=== PATIENT | female | born 1995 | race Caucasian/White ===

== ENCOUNTER 2019-04-20 17:18 | Emergency (ER) | payer SELFPAY ==
[~2019-04-20] VITALS: Ht 152.4 cm; Wt 64.9 kg
[2019-04-20 21:17] VITALS: BP 136/82
== END 2019-04-20 21:50 | disposition home or self-care (01) ==
LOC: ER 17:25
DX: B35.4 Tinea corporis (principal); B35.9 Dermatophytosis, unspecified

== ENCOUNTER 2023-03-18 06:28 | Emergency (ER) | payer MEDICAID ==
[~2023-03-18] VITALS: Ht 152.4 cm; Wt 55.6 kg
[2023-03-18 07:12] LABS: Basophils # (auto) 0 10 ^3/uL (0-0.2); Basophils % (auto) 0.5 % (0.0-2.0); Eosinophils # (auto) 0 10 ^3/uL (0-0.8); Eosinophils % (auto) 0.3 % (0.0-7.0); Hematocrit 44.9 % (36.0-46.0); Hemoglobin 15.8 g/dL (12.2-16.2); Lymphocytes # (auto) 1.5 10 ^3/uL (0.4-5.4); Lymphocytes % (auto) 17.3 % (10.0-50.0); Mean Corpuscular Hemoglobin 33.2 pg (28.0-32.0); Mean Corpuscular Hgb Conc. 35.2 g/dL (32.0-36.0); Mean Corpuscular Volume 94.3 fL (80.0-100.0); Monocytes # (auto) 0.4 10 ^3/uL (0-1.3); Monocytes % (auto) 4.3 % (0.0-12.0); Neutrophils # (auto) 6.7 10 ^3/uL (1.6-8.6); Neutrophils % (auto) 77.6 % (37.0-80.0); Nucleated Red Blood Cells % 0.1 %; Red Blood Cells 4.77 10^6/uL (4.0-5.20); Red Cell Distribution Width 12.8 % (11.8-14.3); White Blood Cell 8.7 10^3/uL (4.4-10.8)
[2023-03-18 07:31] LABS: Alanine Aminotransferase 19 U/L (7-40); Albumin 4.9 g/dL (3.2-4.8); Alkaline Phosphatase 53 U/L (46-116); Anion Gap 6 (5-15); Aspartate Aminotransferase 21 U/L (13-40); BUN/Creatinine Ratio 8.8 (10.0-20.0); Blood Urea Nitrogen 7 mg/dL (9-23); Calcium 9.6 mg/dL (8.7-10.4); Carbon Dioxide 25 mmol/L (20-30); Chloride 110 mmol/L (98-107); Glucose 107 mg/dL (74-106); Lipase 49 U/L (12-53); Potassium 3.6 mmol/L (3.5-5.1); Sodium 141 mmol/L (136-145)
[2023-03-18 07:32] LABS: Bilirubin, Total 1.2 mg/dL (0.2-1.0); Total Protein 7.9 g/dL (5.7-8.2)
[2023-03-18 07:36] LABS: Urine Bacteria NONE SEEN /hpf (None Seen); Urine Blood TRACE /uL (Negative); Urine Clarity Clear (Clear); Urine Color Yellow (Yellow); Urine Mucus FEW (None Seen); Urine Protein, UAD Negative (Negative); Urine Specific Gravity 1.025 (1.001-1.035); Urine Urobilinogen Normal (Negative); Urine WBC 2 /hpf (0 - 5); Urine pH 5.5 (5.0-8.0)
[2023-03-18 07:57] LABS: Amphetamine Screen, Urine Neg (NEGATIVE); Barbiturate Scree,Urine Neg (NEGATIVE); Benzodiazephine Screen, Urine Neg (NEGATIVE); Cocaine Screen, Urine Neg (NEGATIVE); Opiate Scree,Urine Neg (NEGATIVE); Phencyclidine Screen, Urine Neg (NEGATIVE)
[2023-03-18 07:58] LABS: Cannabinoid Screen, Urine Pos (NEGATIVE)
[2023-03-18 08:15] VITALS: BP 107/64; PULSE 62; RESP 16; TEMP 98.2; O2SAT 98
[2023-03-18] MEDS ORDERED: METR-344 PO (09:27)
== END 2023-03-18 09:50 | disposition home or self-care (01) ==
LOC: ER 06:28
DX: K52.1 Toxic gastroenteritis and colitis (principal); R10.2 Pelvic and perineal pain; T36.3X5A Adverse effect of macrolides, initial encounter; F15.90 Other stimulant use, unspecified, uncomplicated; Z90.49 Acquired absence of other specified parts of digestive tract; Z98.890 Other specified postprocedural states; Z79.899 Other long term (current) drug therapy; Y92.89 Other specified places as the place of occurrence of the external cause
CPT/HCPCS: 36415; 74176; 80053; 80307; 81001; 83690; 84702; 85025

== ENCOUNTER 2023-03-21 16:33 | Emergency (ER) | payer MEDICAID ==
[~2023-03-21] VITALS: Ht 152.4 cm; Wt 51.6 kg
[~2023-03-21 16:33] MED LIST: METR-344 PO
[2023-03-21] MEDS ORDERED: SODIUM CHLORIDE 0.9% 1,000 ML IV ONE (17:15)
[2023-03-21] MEDS ORDERED: ONDANSETRON HCL 4 MG/2 ML VIAL IV ONE (17:15)
[2023-03-21 17:33] LABS: Basophils # (auto) 0.1 10 ^3/uL (0-0.2); Basophils % (auto) 0.6 % (0.0-2.0); Eosinophils # (auto) 0.1 10 ^3/uL (0-0.8); Eosinophils % (auto) 1.4 % (0.0-7.0); Hematocrit 45.4 % (36.0-46.0); Lymphocytes # (auto) 3.3 10 ^3/uL (0.4-5.4); Lymphocytes % (auto) 37.9 % (10.0-50.0); Mean Corpuscular Hemoglobin 32.9 pg (28.0-32.0); Mean Corpuscular Hgb Conc. 35.2 g/dL (32.0-36.0); Mean Corpuscular Volume 93.4 fL (80.0-100.0); Monocytes # (auto) 0.7 10 ^3/uL (0-1.3); Monocytes % (auto) 7.7 % (0.0-12.0); Neutrophils # (auto) 4.5 10 ^3/uL (1.6-8.6); Neutrophils % (auto) 52.4 % (37.0-80.0); Nucleated Red Blood Cells % 0.3 %; Red Blood Cells 4.86 10^6/uL (4.0-5.20); Red Cell Distribution Width 12.7 % (11.8-14.3); White Blood Cell 8.7 10^3/uL (4.4-10.8)
[2023-03-21 17:36] LABS: Urine Bacteria NONE SEEN /hpf (None Seen); Urine Blood 1+ /uL (Negative); Urine Clarity HAZY (Clear); Urine Color Yellow (Yellow); Urine Mucus FEW (None Seen); Urine Protein, UAD 1+ (Negative); Urine Specific Gravity 1.032 (1.001-1.035); Urine WBC 2 /hpf (0 - 5); Urine pH 5.5 (5.0-8.0)
[2023-03-21 17:46] LABS: Alanine Aminotransferase 18 U/L (7-40); Albumin 5.1 g/dL (3.2-4.8); Alkaline Phosphatase 52 U/L (46-116); Anion Gap 10 (5-15); Aspartate Aminotransferase 21 U/L (13-40); BUN/Creatinine Ratio 13.4 (10.0-20.0); Blood Urea Nitrogen 11 mg/dL (9-23); Calcium 9.9 mg/dL (8.7-10.4); Carbon Dioxide 21 mmol/L (20-30); Chloride 107 mmol/L (98-107); Glucose 81 mg/dL (74-106); Lipase 42 U/L (12-53); Potassium 3.9 mmol/L (3.5-5.1); Sodium 138 mmol/L (136-145)
[2023-03-21 17:47] LABS: Bilirubin, Total 2.1 mg/dL (0.2-1.0); Total Protein 8.1 g/dL (5.7-8.2)
[2023-03-21] MEDS ORDERED: ZOFR4T PO (20:35)
[2023-03-21 20:57] VITALS: BP 114/81; PULSE 64; RESP 18; TEMP 98.1; O2SAT 97
== END 2023-03-21 20:58 | disposition home or self-care (01) ==
LOC: ER 16:33
DX: E80.7 Disorder of bilirubin metabolism, unspecified (principal); R10.2 Pelvic and perineal pain; R11.2 Nausea with vomiting, unspecified; F12.10 Cannabis abuse, uncomplicated
CPT/HCPCS: 36415; 76705; 80053; 81001; 83690; 84702; 85025; 96374; 99285; J2405; J7030

== ENCOUNTER 2023-04-02 07:45 | Emergency (ER) | payer MEDICAID ==
[~2023-04-02] VITALS: Ht 152.4 cm; Wt 53.7 kg
[~2023-04-02 07:45] MED LIST changes: +ZOFR4T PO
[2023-04-02 08:19] LABS: Basophils # (auto) 0 10 ^3/uL (0-0.2); Basophils % (auto) 0.6 % (0.0-2.0); Eosinophils # (auto) 0.1 10 ^3/uL (0-0.8); Eosinophils % (auto) 0.7 % (0.0-7.0); Hematocrit 45.4 % (36.0-46.0); Hemoglobin 15.7 g/dL (12.2-16.2); Lymphocytes # (auto) 2.2 10 ^3/uL (0.4-5.4); Lymphocytes % (auto) 29.7 % (10.0-50.0); Mean Corpuscular Hemoglobin 32.8 pg (28.0-32.0); Mean Corpuscular Hgb Conc. 34.7 g/dL (32.0-36.0); Mean Corpuscular Volume 94.6 fL (80.0-100.0); Monocytes # (auto) 0.5 10 ^3/uL (0-1.3); Monocytes % (auto) 6.4 % (0.0-12.0); Neutrophils # (auto) 4.6 10 ^3/uL (1.6-8.6); Neutrophils % (auto) 62.6 % (37.0-80.0); Nucleated Red Blood Cells % 0.1 %; Red Blood Cells 4.79 10^6/uL (4.0-5.20); Red Cell Distribution Width 12.9 % (11.8-14.3); White Blood Cell 7.3 10^3/uL (4.4-10.8)
[2023-04-02 08:24] LABS: Urine Bacteria FEW /hpf (None Seen); Urine Blood Negative /uL (Negative); Urine Clarity HAZY (Clear); Urine Color Yellow (Yellow); Urine Mucus MODERATE (None Seen); Urine Protein, UAD 1+ (Negative); Urine Specific Gravity 1.026 (1.001-1.035); Urine Urobilinogen Normal (Negative); Urine WBC 287 /hpf (0 - 5); Urine pH 5.5 (5.0-8.0)
[2023-04-02 08:36] LABS: Alanine Aminotransferase 23 U/L (7-40); Albumin 5.1 g/dL (3.2-4.8); Alkaline Phosphatase 40 U/L (46-116); Anion Gap 8 (5-15); Aspartate Aminotransferase 15 U/L (13-40); BUN/Creatinine Ratio 5.7 (10.0-20.0); Blood Urea Nitrogen 5 mg/dL (9-23); Carbon Dioxide 25 mmol/L (20-30); Chloride 107 mmol/L (98-107); Glucose 90 mg/dL (74-106); Potassium 3.7 mmol/L (3.5-5.1); Sodium 140 mmol/L (136-145)
[2023-04-02 08:37] LABS: Bilirubin, Total 1.9 mg/dL (0.2-1.0); Total Protein 8.1 g/dL (5.7-8.2)
[2023-04-02 11:13] VITALS: BP 129/79; PULSE 69; RESP 18; TEMP 98.5; O2SAT 99
[2023-04-02] MEDS ORDERED: SODIUM CHLORIDE 0.9% 1,000 ML IV ONE (11:30)
[2023-04-02] MEDS ORDERED: ONDANSETRON ODT 4 MG TAB PO ONE (11:30)
[2023-04-02] MEDS ORDERED: cefTRIAXone SOD 1,000 MG VL IM ONE (11:30)
[2023-04-02] MEDS ORDERED: CEPH500T PO (12:30)
[2023-04-02] MEDS ORDERED: ACET-1079 PO (12:31)
[2023-04-02] MEDS ORDERED: METO5TAB67 PO (12:31)
== END 2023-04-02 13:08 | disposition home or self-care (01) ==
LOC: ER 07:45
DX: N12 Tubulo-interstitial nephritis, not specified as acute or chronic (principal); F12.10 Cannabis abuse, uncomplicated; Z32.02 Encounter for pregnancy test, result negative
CPT/HCPCS: 36415; 80053; 81001; 81025; 83690; 85025; 87086; 96360; 96372; 99283; J0696; J7030; Q0162

== ENCOUNTER 2024-06-14 05:30 | Emergency (ER) | payer MEDICAID ==
[~2024-06-14] VITALS: Ht 152.4 cm; Wt 56.0 kg
[~2024-06-14 05:30] MED LIST changes: +ACET-1079 PO; +CEPH500T PO; +METO5TAB67 PO
--- NOTE | 2024-06-14 06:40 | ED.PDOC ---
History of Present Illness HPI Comments 29 y/o F presents with c/o throat pain and congestion, today. Patient endorses on having congestive symptoms for the past 2x days, with additional onset of throat pain, this morning. Patient further informs on checking her throat in the mirror at home prior to arrival and noticing it being "red" in appearance. She denies any recent sick contact or additional relevant or pertinent Hx. Patient denies having any cough, shortness of breath, fever, chills, or other associated symptoms or modifiers at this time. Chief Complaint: Sore Throat Time Seen by MD: 06:10 Primary Care Provider: NONE Reviewed Notes: Nurses Notes, Medications, Allergies Allergies: Coded Allergies: NO KNOWN ALLERGIES (Unverified , 04/20/19) Home Meds Active Scripts Metoclopramide Hcl (Reglan) 5 Mg Tab, 5 MG PO Q8HPRN PRN, #15 TAB 0 Refills Prov:PICHARDO,PRACHI M [facility] 04/02/23 Acetaminophen (Tylenol) 325 Mg Tb, 325 MG PO Q4HPRN PRN, #30 TAB 0 Refills Take 1-2 caps po q4h prn for pain (Do not exceed 3,000mg of acetaminophen in 24 hours) Prov:MARINOPRACHI M [facility] 04/02/23 Cephalexin Monohydrate (Cephalexin) 500 Mg Tab, 1 TAB PO QID for 7 Days, #28 TAB 0 Refills Prov:MARINOPRACHI Crispin [facility] 04/02/23 Ondansetron Odt 4MG Tab (ZOFRAN PO) 4 Mg Tb, 4 MG PO Q8HPRN PRN, #20 TAB ODT TAB-DISSOLVE IN MOUTH, THEN SWALLOW Prov:PRABHJOT GARCÍA NP 03/21/23 Metronidazole (Flagyl) 500 Mg Tab, 1 TAB PO TID for 7 Days, #21 TAB Prov:BENEDICTO JUAREZ MD 03/18/23 Information Source: Patient Mode of Arrival: Ambulatory Severity: Moderate Timing: Days Duration: Since onset Prehospital treatment: None Past Medical History PAST MEDICAL HISTORY: Denies Surgical History: 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 Family History Family History: Reviewed,noncontributory to illness, No family hx of Cancer, No family hx of DM, No family hx of Heart karen, No family hx of HTN, No family hx ofKidney karen, No family hx of Liver karen, No family hx of Lung karen, No family hx of Stroke Social History Smoker: Non-Smoker Alcohol: Occasionally Drugs: Marijuana Lives In: Home EENTM: reports: throat pain, others (congestion ) All Other Systems: Reviewed and Negative (negative unless otherwise stated above or in HPI) Physical Exam General Appearance: Moderate Distress, Normal HEENT: TMs Normal, Other (enlarged tonsills) Neck: Full Range of Motion, Non-Tender, Normal, Normal Inspection Respiratory: Chest Non-Tender, Lungs Clear, No Accessory Muscle Use, No Respiratory Distress, Normal Breath Sounds Cardiovascular: No Edema, No JVD, No Murmur, No Gallop, Normal Peripheral Pulses, Regular Rate/Rhythm Breast Exam: Deferred Gastrointestinal: No Organomegaly, Non Tender, No Pulsatile Mass, Normal Bowel Sounds, Soft Genitalia: Deferred Pelvic: Deferred Rectal: Deferred Extremities: No calf tenderness, Normal capillary refill, Normal inspection, Normal range of motion, Non-tender, No pedal edema Musculoskeletal : Apperance: Normal Neurologic: Alert, supervisor lending activities II-XII nml as Tested, No Motor Deficits, Normal Affect, Normal Mood, No Sensory Deficits Cerebellar Function: Normal Reflexes: Normal Skin: Dry, Normal Color, Warm Peripheral Pulses: 3+ Radial (R), 3+ Radial (L) Lymphatic: No Adenopathy Was a procedure done? Was a procedure done?: No Differential Dx Considerations may include: tonsillitis, strep throat, viral syndrome, URI X-Ray, Labs, Meds, VS Vital Signs Date Time Temp Pulse Resp B/P (MAP) Pulse Ox O2 Delivery O2 Flow Rate FiO2 06/14/24 05:50 98.7 91 18 128/85 (99) 99 Patient alert. Complaining of sore throat. On examination there is enlarged tonsil. Vitals stable. Answering all questions. Reviewed her history. Was given prescription of Augmentin. Was told to follow up with her primary care physician. Was told to come back if there is any problem. Time of 1ST Reevaluation: 06:40 Reevaluation 1ST: Unchanged Patient Education/Counseling: Diagnosis, Treatment Family Education/Counseling: No Family Present Departure 1 Departure Time of Disposition: 07:37 Impression: Primary Impression: Tonsillitis Disposition: 01 HOME / SELF CARE / HOMELESS Condition: Good e-Prescriptions Amoxicillin & Pot Clavulanate (Augmentin) 500 Mg Tab 1 TAB PO BID for 7 Days, #14 TAB Prov: BENEDICTO JUAREZ MD 06/14/24 Discharged With: Self Critical Care Note Critical Care Time?: No Stability Stability form required: No Heart Score Heart Score: Heart Score Response (Comments) Value History N/A 0 EKG N/A 0 Age N/A 0 Risk Factors N/A 0 Troponin N/A 0 Total 0 I personally scribed for BENEDICTO JUAREZ MD ([email or web address]) on 06/14/24 at 06:40. Electronically submitted by Mark Moncada ([email or web address]). BENEDICTO JUAREZ MD Jun 14, 2024 06:40
[2024-06-14] MEDS ORDERED: AMOX500T86 PO (07:38)
[2024-06-14 07:47] VITALS: BP 126/80; PULSE 95; RESP 17; TEMP 98.6; O2SAT 98
== END 2024-06-14 07:47 | disposition home or self-care (01) ==
LOC: ER 05:30
DX: J03.90 Acute tonsillitis, unspecified (principal); Z90.49 Acquired absence of other specified parts of digestive tract

== ENCOUNTER 2025-02-22 22:31 | Emergency (ER) | payer MEDICAID ==
[~2025-02-22] VITALS: Ht 152.4 cm; Wt 62.0 kg
[2025-02-22 22:31] VITALS: BP 120/83; PULSE 64; RESP 18; TEMP 97.3; O2SAT 100
[~2025-02-22 22:31] MED LIST changes: +AMOX500T86 PO
[2025-02-22] MEDS ORDERED: PRED20TA2 PO (23:57)
[2025-02-22] MEDS ORDERED: LORA10CA PO (23:57)
--- NOTE | 2025-02-22 23:57 | ED.PDOC ---
History of Present Illness(SKN HPI Comments 29 year old female presents to ER with complaints of rash x 2 days. Patient states she started experiencing itchy red rash to mid bilateral thighs x 2 days. Patient states she's unsure of the trigger of the rash but notes she does have "sensitive skin". Denies any pain and denies use of medications for current symptoms. Patient also states she was bit by an unknown type of insect on her right lower leg 6 days ago. Denies fever, body aches, chills, use of new soaps/lotions/detergents, diet changes or any further symptoms/complaints Chief Complaint: Rash Time Seen by MD: 22:43 Primary Care Provider: UNKNOWN History of Present Illness: Nurses Notes, Medications, Allergies Allergies: Coded Allergies: Erythromycin (Verified Allergy, Unknown, 02/22/25) Home Meds Active Scripts Prednisone (Prednisone) 20 Mg Tab, 20 MG PO BID for 5 Days, #10 TAB 0 Refills Prov:LAUREANO VOSS 02/22/25 Loratadine (Claritin) 10 Mg Cap, 10 MG PO DAILY PRN, #30 CAP 0 Refills Prov:LAUREANO VOSS 02/22/25 Amoxicillin & Pot Clavulanate (Augmentin) 500 Mg Tab, 1 TAB PO BID for 7 Days, #14 TAB Prov:BENEDICTO JUAREZ MD 06/14/24 Metoclopramide Hcl (Reglan) 5 Mg Tab, 5 MG PO Q8HPRN PRN, #15 TAB 0 Refills Prov:PRACHI PICHARDO [facility] 04/02/23 Acetaminophen (Tylenol) 325 Mg Tb, 325 MG PO Q4HPRN PRN, #30 TAB 0 Refills Take 1-2 caps po q4h prn for pain (Do not exceed 3,000mg of acetaminophen in 24 hours) Prov:PRACHI PICHARDO [facility] 04/02/23 Cephalexin Monohydrate (Cephalexin) 500 Mg Tab, 1 TAB PO QID for 7 Days, #28 TAB 0 Refills Prov:PRACHI PICHARDO [facility] 04/02/23 Ondansetron Odt 4MG Tab (ZOFRAN PO) 4 Mg Tb, 4 MG PO Q8HPRN PRN, #20 TAB ODT TAB-DISSOLVE IN MOUTH, THEN SWALLOW Prov:PRABHJOT GARCÍA NP 03/21/23 Metronidazole (Flagyl) 500 Mg Tab, 1 TAB PO TID for 7 Days, #21 TAB Prov:BENEDICTO JUAREZ MD 03/18/23 Information Source: Patient Mode of Arrival: Ambulatory Past Medical History PAST MEDICAL HISTORY: Denies Surgical History: 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 Family History Family History: Unknown Social History Smoker: Non-Smoker Alcohol: Occasionally Drugs: Marijuana Lives In: Home Constitutional: denies: chills, diaphoresis, fatigue, fever, malaise, sweats, weakness, others EENTM: denies: blurred vision, double vision, ear bleeding, ear discharge, ear drainage, ear pain, ear ringing, eye pain, eye redness, hearing loss, mouth pain, mouth swelling, nasal discharge, nose bleeding, nose congestion, nose pain, photophobia, tearing, throat pain, throat swelling, voice changes, others Respiratory: denies: cough, hemoptysis, orthopnea, SOB at rest, shortness of breath, SOB with excertion, stridor, wheezing, others Cardiovascular: denies: chest pain, dizzy spells, diaphoresis, Dyspnea on exertion, edema, irregular heart beat, left arm pain, lightheadedness, palpitations, PND, syncope, others Gastrointestinal: denies: abdomen distended, abdominal pain, blood streaked bowels, constipated, diarrhea, dysphagia, difficulty swallowing, hematemesis, melena, nausea, poor appetite, poor fluid intake, rectal bleeding, rectal pain, vomiting, others Genitourinary: denies: abnormal vagina bleeding, burning, dyspareunia, dysuria, flank pain, frequency, hematuria, incontinence, pain, , vagina discharge, urgency, others Neurological: denies: dizziness, fainting, headache, left sided numbness, left sided weakness, numbness, paresthesia, pre-existing deficit, right sided numbness, right sided weakness, seizure, speech problems, tingling, tremors, weakness, others Musculoskeletal: denies: back pain, gout, joint pain, joint swelling, muscle pain, muscle stiffness, neck pain, others Integumetry: reports: others (As stated in HPI) Allergic/Immunocompromised: reports: others (As stated in HPI) Hematologic/Lymphatic: denies: anemia, blood clots, easy bleeding, easy bruising, swollen glands, others Endocrine: denies: excessive hunger, excessive sweating, excessive thirst, excessive urination, flushing, intolerance to cold, intolerance to heat, unexplained weight gain, unexplained weight loss, others Psychiatric: denies: anxiety, bipolar disorder, depression, hopeless, panic disorder, schizophrenia, sleepless, suicidal, others Physical Exam General Appearance: No Apparent Distress HEENT: PERRL/EOMI Neck: Full Range of Motion, Non-Tender, Normal Respiratory: Chest Non-Tender, Lungs Clear, No Accessory Muscle Use, No Respiratory Distress, Normal Breath Sounds Cardiovascular: No Murmur, No Gallop, Regular Rate/Rhythm Breast Exam: Deferred Gastrointestinal: NOT DONE Genitalia: Deferred Pelvic: Deferred Rectal: Deferred Extremities: Normal capillary refill, Normal range of motion Neurologic: Alert, microarray operations vice president II-XII nml as Tested, No Motor Deficits, Normal Affect, Normal Mood, No Sensory Deficits Cerebellar Function: Normal Reflexes: Normal Skin: Dry, Warm, Other (Mild urticaria noted to bilateram mid thighs. Healing insect bite also noted to right lower leg without any signs of infection appreciated) Lymphatic: No Adenopathy Was a procedure done? Was a procedure done?: No Sedation Sedation?: No Differential Diagnosis (INTG) Differential Diagnosis: Abrasion Differential Diagnosis: Drug Reaction, Psoriasis Differential Diagnosis: Cellulitis X-Ray, Labs, Meds, VS Vital Signs Date Time Temp Pulse Resp B/P (MAP) Pulse Ox O2 Delivery O2 Flow Rate FiO2 02/22/25 22:31 97.3 64 18 120/83 100 97.3 Prednisone 20 mg p.o. ordered Claritin 10 mg p.o. ordered Patient had improvement in symptoms and in no distress prior to discharge Advised to drink plenty of fluids Advised to follow up with PCP in 1-2 days Patient verbalized understanding and agreeable with current plan of care Advised to return to ER immediately if symptoms worsen Time of 1ST Reevaluation: 23:44 Reevaluation 1ST: N/A Patient Education/Counseling: Diagnosis, Treatment, Prognosis, Need For Follow Up Family Education/Counseling: No Family Present SEPSIS Sepsis Screen Date sepsis recognized/suspect: Feb 22, 2025 Time Sepsis recognized/suspect: 2230 Recent Procedure: No On Antibiotic Therapy: No Respiratory Rate >20: No Heart Rate >90: No Temp<36 C (96.8 F) or >38.3 C: No SBP <90 or MAP <65 mmHG: No New Acute Mental Status Change: No Is the patient on CPAP, BIPAP,: No Vital Signs Date Time Temp Pulse Resp B/P (MAP) Pulse Ox O2 Delivery O2 Flow Rate FiO2 02/22/25 22:31 97.3 64 18 120/83 100 97.3 Departure 1 Departure Time of Disposition: 23:52 Impression: Primary Impression: Contact dermatitis Qualified Codes: L25.9 - Unspecified contact dermatitis, unspecified cause Additional Impression: Insect bite Qualified Codes: W57.XXXA - Bitten or stung by nonvenomous insect and other nonvenomous arthropods, initial encounter Disposition: HOME / SELF CARE / HOMELESS Condition: Stable e-Prescriptions Prednisone (Prednisone) 20 Mg Tab 20 MG PO BID for 5 Days, #10 TAB 0 Refills Prov: LAUREANO VOSS 02/22/25 Loratadine (Claritin) 10 Mg Cap 10 MG PO DAILY PRN, #30 CAP 0 Refills Prov: LAUREANO VOSS 02/22/25 Discharged With: Self Critical Care Note Critical Care Time?: No Stability Stability form required: No Heart Score Heart Score: Heart Score Response (Comments) Value History N/A 0 EKG N/A 0 Age N/A 0 Risk Factors N/A 0 Troponin N/A 0 Total 0 LAUREANO VOSS Feb 22, 2025 23:57
[2025-02-23] MEDS: predniSONE 20 MG TAB PO ONE (00:28)
[2025-02-23] MEDS: LORATADINE 10 MG TAB PO ONE (00:28)
== END 2025-02-23 00:32 | disposition home or self-care (01) ==
LOC: ER 22:31
DX: L25.9 Unspecified contact dermatitis, unspecified cause (principal); Z90.49 Acquired absence of other specified parts of digestive tract; Z88.1 Allergy status to other antibiotic agents; W57.XXXA Bitten or stung by nonvenomous insect and other nonvenomous arthropods, initial encounter; Y93.89 Activity, other specified; Y92.89 Other specified places as the place of occurrence of the external cause; Y99.8 Other external cause status
CPT/HCPCS: 99283; J7512